=== PATIENT | female | born 1965 | race Caucasian/White ===

== ENCOUNTER 2016-08-21 16:22 | Emergency (ER) | payer MEDICAID, OTHER ==
[~2016-08-21] VITALS: Ht 157.5 cm; Wt 93.5 kg
[2016-08-21 16:28] VITALS: Ht 157.5 cm; Wt 93.5 kg
[2016-08-21] MEDS ORDERED: SOD CHLORIDE 0.9% 1,000 ML IV STA (17:05)
[2016-08-21] MEDS ORDERED: ACETAMINOPHEN 500 MG TAB PO STA (17:19)
[2016-08-21] MEDS ORDERED: CEFTRIAXONE 1 GM/50 ML (PMX) 50 ML IVPB ONE (17:30)
[2016-08-21] MEDS ORDERED: DEXAMETHASONE 10 MG/ML 1 ML INJ IV ONE (17:30)
[2016-08-21 17:41] LABS: ADD SCAN DIFF NO
[2016-08-21 17:44] LABS: BASOPHILS % 0.2 % (0.0-2.0); HEMATOCRIT 25.6 % (37.0-47.0); HEMOGLOBIN 7.5 g/dl (12.0-16.0); LYMPHOCYTES # 1.7 10^3/ul (0.8-2.9); LYMPHOCYTES % 8.1 % (15.0-51.0); MEAN CORPUSCULAR HEMOGLOBIN 17.6 pg (29.0-33.0); MEAN CORPUSCULAR HGB CONC 29.3 g/dl (32.0-37.0); MEAN PLATELET VOLUME 9.1 fl (7.4-10.4); MONOCYTE # 1.1 10^3/ul (0.3-0.9); MONOCYTES % 5.2 % (0.0-11.0); NEUTROPHILS % 86.1 % (39.0-77.0); PLATELET COUNT 455 10^3/UL (140-415); RED BLOOD COUNT 4.27 10^6/ul (4.20-5.40); WHITE BLOOD COUNT 20.9 10^3/ul (4.8-10.8)
[2016-08-21 18:06] LABS: ALBUMIN 4.5 g/dl (3.3-4.9); ALBUMIN/GLOBULIN RATIO 1.32; BILIRUBIN,INDIRECT 0.3 mg/dl (0-1.1); BILIRUBIN,TOTAL 0.3 mg/dl (0.2-1.3); CALCIUM 9.2 mg/dl (8.4-10.2); CREATININE 0.48 mg/dl (0.44-1.00); POTASSIUM 4.3 mmol/L (3.5-5.1); TOTAL PROTEIN 7.9 g/dl (6.1-8.1)
[2016-08-21] MEDS ORDERED: IOHEXOL 300MG/ML 150 ML BTL ONE (18:27)
[2016-08-21] MEDS ORDERED: SOD CHLORIDE 0.9% 100 ML ONE (18:27)
--- NOTE | 2016-08-21 19:24 | RADRPT ---
PROCEDURE: CT soft tissue neck. CLINICAL INDICATION: Difficulty swallowing and right peritonsillar abscess TECHNIQUE: The study was performed utilizing a GE 64-slice multidetector CT scanner. Direct thin s ection helically acquired axial sections were obtained through the neck with the use of 80 cc of Om [id number]. Coronal and sagittal reformations were obtained. The images were reviewed on a PACS wor kstation. The total CTDIvol is 9.58 mGy and the DLP is 207.77 mGy-cm. COMPARISON: No prior studies are available for comparison. FINDINGS: The visualized imaged portions of the brain, scalp and calvarium are normal. The bilateral orbits a re normal. The bilateral paranasal sinuses, mastoid air cells and middle ear cavities are clear. The visualized nasopharynx is patent and symmetric. The oropharynx demonstrates enlargement of the right tonsil with a 9 mm hypoattenuation focus centrally compatible with a right tonsillar abscess. The left tonsil appears normal in size and attenuation. Mild narrowing of the oropharynx is noted along the right oral pharyngeal mucosa. The bilateral sublingual glands, submandibular glands and t he parotid glands are normal. No evidence for pathologic lymphadenopathy is present. Small bilateral level II lymph nodes are pre sent with the largest in the right measuring 1.3 cm in transverse dimensions. The hypopharynx, supra glottis, glottis are normal. The bilateral thyroid lobes demonstrate multiple right thyroid nodules with right thyroid lobe enlar gement. This is most compatible with multinodular goiter. However recommend thyroid ultrasound and correlation with thyroid function tests to further evaluate. The largest nodule measures 1.7 cm AP by 1.2 cm in transverse dimensions. The lung apices are clear. IMPRESSION: 1. Right tonsillar abscess and enlargement. Recommend follow-up until resolution. 2. No evidence for pathologic lymphadenopathy. 3. Multiple right thyroid lobe nodules and enlargement. Recommend thyroid ultrasound and correlati on with thyroid function tests to evaluate for multinodular goiter versus neoplasm. A call report was made to Pina Hwang at 08/21/2016 7:23:12 PM following the completion of the ex amination by the undersigned. RPTAT: HDC .Cary Garza MD, MD Date Time Electronically viewed and signed by .Cary Garza MD, MD on 08/21/2016 19:24 .C/
[2016-08-21] MEDS ORDERED: CLINDAMYCIN 900 MG/D5W (PMX) 50 ML IVPB SCH (19:30)
--- NOTE | 2016-08-21 19:53 | ERD ---
ER Documentation Chief Complaint Date/Time DATE: 08/21/16 TIME: 19:44 Chief Complaint Swelling to R face with loss of vision and hearing. Fever. HPI This is a 51-year-old female who presents to the emergency room for evaluation of a fever, throat pain, and mild swelling to the right side of her throat. The patient states that she has had these symptoms for approximately 2 days duration. She has not taken any medication for this, she denies any trauma to the throat, denies any difficulty swallowing. ROS All systems reviewed and are negative except as per history of present illness. Medications Home Meds No Active Prescriptions or Reported Meds Allergies Allergies: Coded Allergies: No Known Allergy (Unverified , 08/21/16) PMhx/Soc Hx Cardiac Disorders: Yes (HTN) Hx Psychiatric Problems: No Hx Miscellaneous Medical Probl: No Hx Alcohol Use: No Hx Substance Use: No Hx Tobacco Use: No Smoking Status: Never smoker Physical Exam Vitals Vital Signs Date Time Temp Pulse Resp B/P Pulse Ox O2 Delivery O2 Flow Rate FiO2 08/21/16 19:18 95 17 103/89 98 Room Air 08/21/16 17:13 95 21 157/98 100 Room Air 08/21/16 16:28 102.3 108 24 123/68 99 Physical Exam INITIAL VITAL SIGNS: Reviewed by me GENERAL: The patient is well developed and appropriate for usual state of health in no apparent distress HEENT: Pharyngeal erythema with white visible exudate noted on the right tonsil , mild tonsillar swelling bilaterally with right greater than left, pupils equal , round, and reactive to light. EOMI. There is no scleral icterus. NECK: C-spine is soft and supple, there is no meningismus. There is no cervical lymphadenopathy. LUNGS: Clear to auscultation bilaterally. There are no rales, wheezes or rhonchi. HEART: Regular rate and rhythm, no murmurs, clicks, rubs or gallops. ABDOMEN: Soft, non-tender, non-distended. There are bowel sounds in all four quadrants. No rebound or guarding. EXTREMITIES: There is no peripheral cyanosis or edema. No focal swelling or erythema. NEUROLOGICAL: The patient moves all four extremities with 5/5 strength. Cranial nerves II - XII are intact. Normal gait. Alert and oriented SKIN: There is no apparent rash or petechiae. HEME/LYMPHATIC: There is no evidence of excessive bruising or lymphedema. PSYCHIATRIC: The patient does not appear anxious or depressed. Result Diagram: 08/21/16 1730 08/21/16 1730 Results 24 hrs Laboratory Tests Test 08/21/16 17:30 White Blood Count 20.910^3/ul Red Blood Count 4.2710^6/ul Hemoglobin 7.5g/dl Hematocrit 25.6% Mean Corpuscular Volume 60.0fl Mean Corpuscular Hemoglobin 17.6pg Mean Corpuscular Hemoglobin Concent 29.3g/dl Red Cell Distribution Width 19.0% Platelet Count 34625^3/UL Mean Platelet Volume 9.1fl Neutrophils % 86.1% Lymphocytes % 8.1% Monocytes % 5.2% Eosinophils % 0.0% Basophils % 0.2% Nucleated Red Blood Cells % 0.0/100WBC Neutrophils # 18.010^3/ul Lymphocytes # 1.710^3/ul Monocytes # 1.110^3/ul Eosinophils # 0.010^3/ul Basophils # 0.010^3/ul Nucleated Red Blood Cells # 0.010^3/ul Sodium Level 136mmol/L Potassium Level 4.3mmol/L Chloride Level 105mmol/L Carbon Dioxide Level 23mmol/L Anion Gap 12 Blood Urea Nitrogen 7mg/dl Creatinine 0.48mg/dl Glucose Level 93mg/dl Calcium Level 9.2mg/dl Total Bilirubin 0.3mg/dl Direct Bilirubin 0.00mg/dl Indirect Bilirubin 0.3mg/dl Aspartate Amino Transf (AST/SGOT) 41IU/L Alanine Aminotransferase (ALT/SGPT) 38IU/L Alkaline Phosphatase 102IU/L Total Protein 7.9g/dl Albumin 4.5g/dl Globulin 3.40g/dl Albumin/Globulin Ratio 1.32 Current Medications Medications (Trade) Dose Ordered Sig/Sue Route PRN Reason Start Time Stop Time Status Last Admin Dose Admin Sodium Chloride (NS) 1,000 ml @ 1,000 mls/hr Q1H STAT IV 08/21/16 17:05 08/21/16 18:04 DC 08/21/16 18:00 Dexamethasone 10 mg 10 mg ONCE ONCE IV 08/21/16 17:30 08/21/16 17:31 DC 08/21/16 18:00 Ceftriaxone Sodium (Rocephin) 50 ml @ 100 mls/hr ONCE ONCE IVPB 08/21/16 17:30 08/21/16 17:59 DC 08/21/16 18:00 Acetaminophen (Tylenol Tab) 1,000 mg ONCE STAT PO 08/21/16 17:19 08/21/16 17:20 DC 08/21/16 18:00 IV Flush 10 ml 10 ml STK-MED ONCE .ROUTE 08/21/16 18:27 08/21/16 18:28 DC 08/21/16 18:48 Sodium Chloride (NS) 100 ml @ ud STK-MED ONCE .ROUTE 08/21/16 18:27 08/21/16 18:28 DC 08/21/16 18:49 Iohexol 150 ml 150 ml STK-MED ONCE .ROUTE 08/21/16 18:27 08/21/16 18:28 DC 08/21/16 18:48 Clindamycin HCl/ Dextrose (Cleocin 900 Mg/ D5W (Pmx)) 50 ml @ 50 mls/hr ONCE IVPB 08/21/16 19:30 08/21/16 20:29 08/21/16 19:47 Procedures/MDM CT soft tissue neck with IV contrast: 1. Right tonsillar abscess and enlargement. Recommend follow-up until resolution. 2. No evidence for pathologic lymphadenopathy. 3. Multiple right thyroid lobe nodules and enlargement. Recommend thyroid ultrasound and correlation with thyroid function tests to evaluate for multinodular goiter versus neoplasm. This is a 51-year-old female presents to the emergency room for evaluation of throat pain. When I evaluated her she was febrile tachycardic. Lab work was obtained which did show leukocytosis. On my examination this patient did have right pharyngeal erythema with visible exudate and mild enlargement of the right tonsil greater than the left. I did obtain a CT of the neck with contrast which did demonstrate my suspicion of a right peritonsillar abscess at 9 mm. There is not much uvular deviation, the patient has no respiratory distress, no stridor, no trismus, she was given Rocephin and clindamycin in the emergency room. She was also given Decadron. Upon my reevaluation the patient does state she is feeling better at this time. I have contacted our ENT regional manager , Dr. Judd who agrees that this patient can be discharged home with a Medrol Dosepak, clindamycin with instructions to follow-up in his office in 1 week. I also advised her that if she were to develop any difficulty swallowing or shortness of breath she is to return immediately to the emergency room and she did verbalize understanding. Patient will be discharged at this time. Departure Diagnosis: Primary Impression: Peritonsillar abscess Additional Impressions: Acute streptococcal pharyngitis Microcytic anemia Condition: Stable SAFIA HANCOCK DO Aug 21, 2016 19:53
[2016-08-21] MEDS ORDERED: CLIN-73 PO (19:59)
[2016-08-21] MEDS ORDERED: MED4DP PO (19:59)
[2016-08-21 20:27] VITALS: BP 112/66; PULSE 81; RESP 17; TEMP 98.6
== END 2016-08-21 20:29 | disposition home or self-care (01) ==
LOC: E/R 16:22
DX: J36 Peritonsillar abscess (principal); J20.0 Acute bronchitis due to Mycoplasma pneumoniae; D50.9 Iron deficiency anemia, unspecified; R40.2142 Coma scale, eyes open, spontaneous, at arrival to emergency department; R40.2252 Coma scale, best verbal response, oriented, at arrival to emergency department; R40.2362 Coma scale, best motor response, obeys commands, at arrival to emergency department; I10 Essential (primary) hypertension
CPT/HCPCS: 70491; 80053; 85025; J0696; J1100; J7030; Q9967; Z7610; 36415; 96374; 96375